=== PATIENT | male | born 1960 | race Caucasian/White ===

== ENCOUNTER 2016-12-08 17:31 | Emergency (ER) | payer OTHER ==
[2016-12-08] MEDS ORDERED: BUFFERED LIDOCAINE 10 ML SYRINGE ONE (17:46)
[2016-12-08] MEDS ORDERED: TETANUS/DIPHTHERIA/PERTUSSIS 0.5 ML SYRINGE IM ONE ×2 (17:47→18:01)
== END 2016-12-08 18:11 | disposition home or self-care (01) ==
DX: S61.211A Laceration without foreign body of left index finger without damage to nail, initial encounter (principal); W27.8XXA Contact with other nonpowered hand tool, initial encounter; Z86.718 Personal history of other venous thrombosis and embolism; I10 Essential (primary) hypertension

== ENCOUNTER 2017-01-04 11:02 | Day surgery (SDC) | payer OTHER ==
[2017-01-04] MEDS ORDERED: LACTATED RINGERS 1,000 ML IV ONE (11:28)
[2017-01-04] MEDS ORDERED: MIDAZOLAM 2 MG/2 ML VIAL IVP ONE (12:00)
[2017-01-04] MEDS ORDERED: fentaNYL 100 MCG/2 ML VIAL IVP ONE (12:00)
== END 2017-01-04 11:03 | disposition home or self-care (01) ==
PROC: 0DB68ZX Excision of Stomach, Via Natural or Artificial Opening Endoscopic, Diagnostic (ICD-10-PCS; 2017-01-04)
PROC: 0DB58ZX Excision of Esophagus, Via Natural or Artificial Opening Endoscopic, Diagnostic (ICD-10-PCS; principal; 2017-01-04 12:30)
DX: R13.10 Dysphagia, unspecified (principal); K20.9 Esophagitis, unspecified; K29.80 Duodenitis without bleeding; K29.50 Unspecified chronic gastritis without bleeding; I10 Essential (primary) hypertension; Z86.718 Personal history of other venous thrombosis and embolism
CPT/HCPCS: 43239; 87081; J7120

== ENCOUNTER 2017-08-30 09:46 | Day surgery (SDC) | payer OTHER ==
[2017-08-30] MEDS ORDERED: LACTATED RINGERS 1,000 ML IV ONE (10:17)
[2017-08-30] MEDS ORDERED: fentaNYL 100 MCG/2 ML VIAL IVP ONE (11:26)
[2017-08-30] MEDS ORDERED: MIDAZOLAM 2 MG/2 ML VIAL IVP ONE (11:26)
[2017-08-30 11:41] VITALS: BP 126/75
== END 2017-08-30 09:47 | disposition home or self-care (01) ==
LOC: SDS 09:46
PROVIDERS: ATTEND Surgery
PROC: 0DB58ZX Excision of Esophagus, Via Natural or Artificial Opening Endoscopic, Diagnostic (ICD-10-PCS; principal; 2017-08-30 11:00)
DX: K22.70 Barrett's esophagus without dysplasia (principal); K44.9 Diaphragmatic hernia without obstruction or gangrene; Z87.891 Personal history of nicotine dependence
CPT/HCPCS: 43239; J7120

== ENCOUNTER 2018-05-11 08:00 | Outpatient (CLI) | payer OTHER ==
[2018-05-11 19:01] LABS: BASOPHILS % (AUTO) 0.8 %; EOSINOPHILS # (AUTO) 0.3 10^3/uL (0.0-0.7); EOSINOPHILS % (AUTO) 4.7 %; HGB - HEMOGLOBIN 14.7 g/dL (14.0-18.0); LYMPHOCYTES # (AUTO) 1.9 10^3/uL (1.5-3.5); LYMPHOCYTES % (AUTO) 33.2 %; MEAN CORPUSCULAR HEMOGLOBIN 33.3 pg (27.0-31.0); MEAN CORPUSCULAR HGB CONC 32.7 g/dL (32.0-36.0); MEAN CORPUSCULAR VOLUME 101.9 fL (80.0-94.0); MEAN PLATELET VOLUME 9.1 fL (7.4-11.4); MONOCYTES # (AUTO) 0.4 10^3/uL (0.0-1.0); MONOCYTES % (AUTO) 7.1 %; NEUTROPHILS # (AUTO) 3.2 10^3/uL (1.5-6.6); NEUTROPHILS % (AUTO) 54.2 %; PLT - PLATELET COUNT 232 10^3/uL (130-450); RED BLOOD COUNT 4.42 10^6/uL (4.70-6.10); RED CELL DISTRIBUTION WIDTH 13.4 % (12.0-15.0); WHITE BLOOD COUNT 5.9 x10^3/uL (4.8-10.8)
[2018-05-11 19:22] LABS: ALBUMIN 3.9 g/dL (3.2-5.5); BILIRUBIN,TOTAL 0.6 mg/dL (0.2-1.0); CALCIUM 9.1 mg/dL (8.5-10.3); CREATININE 1.1 mg/dL (0.6-1.2); TOTAL PROTEIN 7.7 g/dL (6.7-8.2)
== END 2018-05-11 08:01 | disposition home or self-care (01) ==
LOC: LAB.WCP 08:00
PROVIDERS: ATTEND Internal Medicine Rheumatology
DX: M45.9 Ankylosing spondylitis of unspecified sites in spine (principal)
CPT/HCPCS: 36415; 80053; 85025; 85651